=== PATIENT | female | born 1970 | race Caucasian/White ===

== ENCOUNTER 2020-10-28 22:19 | Inpatient (IN) | payer MEDICAID, OTHER ==
[~2020-10-28] VITALS: Ht 172.7 cm; Wt 108.6 kg
[~2020-10-28 22:19] MED LIST: HYDR-3682 PO; QUET50TA PO; SERT50TA PO
[2020-10-29 00:44] LABS: Basophils # (auto) 0 10 ^3/uL (0-0.2); Eosinophils # (auto) 0.2 10 ^3/uL (0-0.8); Hemoglobin 12.4 g/dL (12.2-16.2); Lymphocytes # (auto) 1.3 10 ^3/uL (0.4-5.4); Monocytes # (auto) 0.2 10 ^3/uL (0-1.3)
[2020-10-29 00:46] LABS: Basophils % (auto) 1.3 % (0.0-2.0); Eosinophils % (auto) 5.4 % (0.0-7.0); Hematocrit 36.3 % (36.0-46.0); Mean Corpuscular Hemoglobin 35.1 pg (28.0-32.0); Mean Corpuscular Hgb Conc. 34.3 g/dL (32.0-36.0); Mean Corpuscular Volume 102.2 fL (80.0-100.0); Neutrophils # (auto) 1.3 10 ^3/uL (1.6-8.6); Neutrophils % (auto) 42.3 % (37.0-80.0); Platelet Count (auto) 66 10^3/uL (140-450); Red Blood Cells 3.55 10^6/uL (4.0-5.20); Red Cell Distribution Width 18.1 % (11.8-14.3)
[2020-10-29 00:59] LABS: INR 1.6 (0.9-1.15); Partial Thromboplastin Time 30.8 sec (23.0-31.2)
[2020-10-29] MEDS ORDERED: MORPHINE SULFATE 10 MG/ML INJ 1ML SDV IV ONE (01:00)
[2020-10-29] MEDS ORDERED: ONDANSETRON HCL 4 MG/2 ML VIAL IV ONE (01:00)
[2020-10-29] MEDS ORDERED: MORPHINE SULF INJ 2 MG/ML SYRINGE 1ML ONE (01:18)
[2020-10-29] MEDS ORDERED: diphenhdrAMINE HCL 50 MG/1 ML VL IV ONE (01:30)
[2020-10-29 02:42] LABS: Albumin 2.4 g/dL (3.4-5.0); BUN/Creatinine Ratio 6.8; Potassium 3.6 mmol/L (3.5-5.1)
[2020-10-29 02:50] LABS: Total Protein 4.8 g/dL (6.4-8.2)
[2020-10-29] MEDS ORDERED: ONDANSETRON HCL 4 MG/2 ML VIAL IV PRN (13:45)
[2020-10-29] MEDS ORDERED: NITROGLYCERIN 0.4 MG SL TAB SL PRN (13:45)
[2020-10-29] MEDS ORDERED: SODIUM CHLORIDE 0.9% 500 ML IV ONE (13:45)
[2020-10-29] MEDS ORDERED: hydrALAZINE HCL 20 MG/ML VL IV PRN (13:45)
[2020-10-29] MEDS ORDERED: MORPHINE SULF INJ 2 MG/ML SYRINGE 1ML IV PRN (13:45)
[2020-10-29] MEDS ORDERED: LORazepam 2MG/ML-1ML VIAL IV PRN (13:45)
[2020-10-29] MEDS ORDERED: IOHEXOL 300 MG/ML 100ML BOTTLE IJ ONE (14:00)
[2020-10-29] MEDS ORDERED: OCTREOTIDE ACETATE 100 MCG in SODIUM CHL 0.9% 50 ML IV ONE (14:30)
[2020-10-29] MEDS ORDERED: levoFLOXacin 500MG 100 ML IV ONE (14:45)
[2020-10-29] MEDS ORDERED: cefTRIAXone 1GM/50ML D5W 50 ML IV SCH (14:45)
[2020-10-29 15:31] LABS: Urine Bacteria NONE SEEN /hpf (None Seen); Urine Blood TRACE /uL (Negative); Urine Mucus FEW (None Seen); Urine Specific Gravity 1.021 (1.001-1.035); Urine WBC 1 /hpf (0 - 5)
[2020-10-29] MEDS: MORPHINE SULF INJ 2 MG/ML SYRINGE 1ML IV PRN (17:16)
[2020-10-29 17:33] VITALS: BP 134/68
[2020-10-29] MEDS ORDERED: RIFA550T PO (17:53)
[2020-10-29] MEDS ORDERED: LACT10SO3 PO (17:53)
[2020-10-29] MEDS ORDERED: PROP80CA40 PO (17:53)
[2020-10-29] MEDS ORDERED: IRON150T2 PO (17:53)
[2020-10-29] MEDS ORDERED: MULTCAP45 PO (17:53)
[2020-10-29] MEDS ORDERED: [UNRECOGNIZED DRUG - CODE] PO (17:53)
[2020-10-29] MEDS ORDERED: FOLI1TAB6 PO (17:53)
[2020-10-29] MEDS ORDERED: PANT40TA2 PO (17:53)
[2020-10-29] MEDS ORDERED: POTA10TA51 PO (17:53)
[2020-10-29] MEDS ORDERED: MELA3TAB27 PO (17:53)
[2020-10-29] MEDS ORDERED: ASCO500T11 PO (17:53)
[2020-10-29] MEDS ORDERED: SPIR25TA8 PO (17:53)
[2020-10-29] MEDS ORDERED: THIA100T5 PO (17:53)
[2020-10-29] MEDS ORDERED: CHOL20007 PO (17:53)
[2020-10-29] MEDS: OCTREOTIDE ACETATE 500 MCG in SODIUM CHL 0.9% 99 ML IV SCH (18:35)
[2020-10-29 22:00] VITALS: BP 131/64
[2020-10-29] MEDS: PANTOPRAZOLE 40 MG/10 ML VIAL INJ IV SCH (22:02)
[2020-10-29 22:53] VITALS: BP 111/57
[2020-10-29 23:11] VITALS: BP 112/56
[2020-10-30] VITALS (9 sets, daily range): BP systolic 99–138; BP diastolic 45–71
[2020-10-30] MEDS: OCTREOTIDE ACETATE 500 MCG in SODIUM CHL 0.9% 99 ML IV SCH ×3 (01:30→21:34)
[2020-10-30] MEDS: MORPHINE SULF INJ 2 MG/ML SYRINGE 1ML IV PRN (08:37)
[2020-10-30] MEDS: IRON PO SCH (10:00)
[2020-10-30] MEDS: PROPRANOLOL HCL 40 MG PO SCH (10:00)
[2020-10-30] MEDS: FOLIC ACID PO SCH (10:00)
[2020-10-30] MEDS: CHOLECALCIFEROL (VITD3) 2,000 UNIT CAP/TAB PO SCH (10:06)
[2020-10-30] MEDS: PANTOPRAZOLE 40 MG/10 ML VIAL INJ IV SCH ×2 (10:06→21:36)
[2020-10-30] MEDS: ASCORBIC ACID 500 MG TAB PO SCH (10:06)
[2020-10-30] MEDS: FOLIC ACID 1 MG TAB PO SCH (10:06)
[2020-10-30] MEDS: THIAMINE HCL 100 MG TAB PO SCH (10:12)
[2020-10-30] MEDS: MULTIPLE VITAMIN TAB PO SCH (10:13)
[2020-10-30] MEDS: SPIRONOLACTONE 25 MG TAB PO SCH (10:13)
[2020-10-30 10:21] LABS: Basophils # (auto) 0 10 ^3/uL (0-0.2); Eosinophils # (auto) 0.1 10 ^3/uL (0-0.8); Hemoglobin 12.1 g/dL (12.2-16.2); Lymphocytes # (auto) 0.8 10 ^3/uL (0.4-5.4); Monocytes # (auto) 0.1 10 ^3/uL (0-1.3); Red Cell Distribution Width 17.9 % (11.8-14.3)
[2020-10-30 10:26] LABS: Eosinophils % (auto) 4.1 % (0.0-7.0); Hematocrit 35.5 % (36.0-46.0); Lymphocytes % (auto) 35.1 % (10.0-50.0); Mean Corpuscular Hemoglobin 35.3 pg (28.0-32.0); Mean Corpuscular Volume 103.8 fL (80.0-100.0); Monocytes % (auto) 4.8 % (0.0-12.0); Neutrophils # (auto) 1.2 10 ^3/uL (1.6-8.6); Nucleated Red Blood Cells % 0.3 %; Platelet Count (auto) 63 10^3/uL (140-450); Red Blood Cells 3.43 10^6/uL (4.0-5.20); White Blood Cell 2.2 10^3/uL (4.4-10.8)
[2020-10-30 10:39] LABS: Potassium 4.3 mmol/L (3.5-5.1)
[2020-10-30 10:50] LABS: Albumin 2.5 g/dL (3.4-5.0); Bilirubin, Total 5.7 mg/dL (0.2-1.0); Calcium 7.9 mg/dL (8.5-10.1); Total Protein 5.1 g/dL (6.4-8.2)
[2020-10-30] MEDS: POTASSIUM CHL 20 Meq TABLET PO SCH (11:18)
[2020-10-30] MEDS: HYDROmorphone HCL 2 MG/ML VL IV PRN ×2 (11:19→20:32)
[2020-10-30] MEDS: LACTULOSE 20Gm/30ML SOLN PO SCH ×2 (13:57→21:35)
[2020-10-30] MEDS: RIFAXIMIN 200 MG PO SCH ×2 (14:00→21:47)
[2020-10-30] MEDS: MELATONIN PO SCH (18:00)
[2020-10-31] MEDS: HYDROmorphone HCL 2 MG/ML VL IV PRN ×3 (02:38→19:56)
[2020-10-31 05:00] VITALS: BP 119/47
[2020-10-31] MEDS: RIFAXIMIN 200 MG PO SCH ×3 (06:00→22:00)
[2020-10-31 06:22] LABS: Hematocrit 30.8 % (36.0-46.0); Mean Corpuscular Hemoglobin 36.6 pg (28.0-32.0); Mean Corpuscular Hgb Conc. 35.5 g/dL (32.0-36.0); Mean Corpuscular Volume 103.1 fL (80.0-100.0); Platelet Count (auto) 52 10^3/uL (140-450); Red Blood Cells 2.99 10^6/uL (4.0-5.20); Red Cell Distribution Width 17.1 % (11.8-14.3)
[2020-10-31 06:36] LABS: Basophils % (manual) 0 (0.0-2.0); Blast Cells 0; Calcium 7.8 mg/dL (8.5-10.1); Metamyelocytes % 0; Myelocytes % 0; Potassium 4.4 mmol/L (3.5-5.1); Promyelocytes % 0; Reactive Lymphocytes 0; White Blood Cell 1.9 10^3/uL (4.4-10.8)
[2020-10-31] MEDS: OCTREOTIDE ACETATE 500 MCG in SODIUM CHL 0.9% 99 ML IV SCH ×2 (06:46→16:44)
[2020-10-31] MEDS: LACTULOSE 20Gm/30ML SOLN PO SCH ×3 (06:46→21:22)
[2020-10-31 07:13] LABS: Band Neutrophils % (manual) 3; Eosinophils % (manual) 4 (0-7); Lymphocytes % (manual) 57 (10.0-50.0); Monocytes % (manual) 12 (0-12)
[2020-10-31 08:35] VITALS: BP 120/68
[2020-10-31] MEDS: FOLIC ACID PO SCH (10:00)
[2020-10-31] MEDS: IRON PO SCH (10:00)
[2020-10-31] MEDS: PROPRANOLOL HCL 40 MG PO SCH (10:00)
[2020-10-31] MEDS: FOLIC ACID 1 MG TAB PO SCH (10:17)
[2020-10-31] MEDS: THIAMINE HCL 100 MG TAB PO SCH (10:17)
[2020-10-31] MEDS: SPIRONOLACTONE 25 MG TAB PO SCH (10:17)
[2020-10-31] MEDS: PANTOPRAZOLE 40 MG/10 ML VIAL INJ IV SCH ×2 (10:17→21:22)
[2020-10-31] MEDS: POTASSIUM CHL 20 Meq TABLET PO SCH (10:17)
[2020-10-31] MEDS: diphenhdrAMINE HCL 50 MG/1 ML VL IV PRN ×2 (10:18→21:30)
[2020-10-31] MEDS: CHOLECALCIFEROL (VITD3) 2,000 UNIT CAP/TAB PO SCH (10:18)
[2020-10-31] MEDS: MULTIPLE VITAMIN TAB PO SCH (10:18)
[2020-10-31] MEDS: ASCORBIC ACID 500 MG TAB PO SCH (10:18)
[2020-10-31 13:00] VITALS: BP 132/60
[2020-10-31 16:56] VITALS: BP 135/62
[2020-10-31 17:35] VITALS: BP 120/71
[2020-10-31] MEDS: MELATONIN PO SCH (17:51)
[2020-10-31 22:00] VITALS: BP 115/66
[2020-11-01] VITALS (13 sets, daily range): BP systolic 110–136; BP diastolic 57–75
[2020-11-01] MEDS: OCTREOTIDE ACETATE 500 MCG in SODIUM CHL 0.9% 99 ML IV SCH ×3 (02:30→21:21)
[2020-11-01] MEDS: LACTULOSE 20Gm/30ML SOLN PO SCH ×3 (06:00→21:21)
[2020-11-01] MEDS: RIFAXIMIN 200 MG PO SCH (06:00)
[2020-11-01 06:38] LABS: Hemoglobin 10.8 g/dL (12.2-16.2)
[2020-11-01 06:41] LABS: Hematocrit 30.5 % (36.0-46.0); Mean Corpuscular Hgb Conc. 35.4 g/dL (32.0-36.0); Mean Corpuscular Volume 101.5 fL (80.0-100.0); Platelet Count (auto) 49 10^3/uL (140-450); Red Blood Cells 3.01 10^6/uL (4.0-5.20); Red Cell Distribution Width 17.4 % (11.8-14.3)
[2020-11-01 06:43] LABS: White Blood Cell 1.8 10^3/uL (4.4-10.8)
[2020-11-01 06:45] LABS: Basophils % (manual) 0 (0.0-2.0); Blast Cells 0; INR 1.72 (0.9-1.15); Metamyelocytes % 0; Myelocytes % 0; Promyelocytes % 0; Reactive Lymphocytes 0
[2020-11-01 06:50] LABS: Calcium 7.7 mg/dL (8.5-10.1); Potassium 3.9 mmol/L (3.5-5.1)
[2020-11-01 06:53] LABS: BUN/Creatinine Ratio 7.1
[2020-11-01 07:55] LABS: Band Neutrophils % (manual) 1; Eosinophils % (manual) 6 (0-7); Lymphocytes % (manual) 35 (10.0-50.0); Monocytes % (manual) 10 (0-12)
[2020-11-01] MEDS: FOLIC ACID 1 MG TAB PO SCH (09:59)
[2020-11-01] MEDS: IRON PO SCH ×2 (09:59→10:00)
[2020-11-01] MEDS: PANTOPRAZOLE 40 MG/10 ML VIAL INJ IV SCH ×2 (09:59→21:20)
[2020-11-01] MEDS: FOLIC ACID PO SCH ×2 (09:59→10:00)
[2020-11-01] MEDS: PROPRANOLOL HCL 40 MG PO SCH ×2 (09:59→10:00)
[2020-11-01] MEDS: SPIRONOLACTONE 25 MG TAB PO SCH (10:00)
[2020-11-01] MEDS: POTASSIUM CHL 20 Meq TABLET PO SCH (10:00)
[2020-11-01] MEDS: THIAMINE HCL 100 MG TAB PO SCH (10:00)
[2020-11-01] MEDS: CHOLECALCIFEROL (VITD3) 2,000 UNIT CAP/TAB PO SCH (10:01)
[2020-11-01] MEDS: MULTIPLE VITAMIN TAB PO SCH (10:01)
[2020-11-01] MEDS: ASCORBIC ACID 500 MG TAB PO SCH (10:01)
[2020-11-01] MEDS ORDERED: HYDROmorphone HCL 2 MG/ML VL IV PRN (10:30)
[2020-11-01] MEDS: HYDROmorphone HCL 2 MG/ML VL IV PRN ×2 (11:17→23:39)
[2020-11-01] MEDS ORDERED: PHYTONADIONE (VIT K)10 MG/ML 1ML VIAL IV ONE (13:30)
[2020-11-01] MEDS ORDERED: rifAXIMin 550 MG TAB PO SCH (14:00)
[2020-11-01] MEDS ORDERED: phytonadione 10 MG in SODIUM CHL 0.9% 50 ML IV ONE (14:15)
[2020-11-01] MEDS: rifAXIMin 550 MG TAB PO SCH ×2 (16:23→21:21)
[2020-11-01] MEDS ORDERED: MELATONIN PO SCH (16:30)
[2020-11-01] MEDS: MELATONIN PO SCH (18:00)
[2020-11-02] VITALS (13 sets, daily range): BP systolic 101–152; BP diastolic 58–78
[2020-11-02 05:47] LABS: Hemoglobin 10.8 g/dL (12.2-16.2); Red Cell Distribution Width 17.1 % (11.8-14.3)
[2020-11-02 05:50] LABS: Hematocrit 30.1 % (36.0-46.0); Mean Corpuscular Hemoglobin 36.6 pg (28.0-32.0); Mean Corpuscular Hgb Conc. 35.8 g/dL (32.0-36.0); Mean Corpuscular Volume 102.1 fL (80.0-100.0); Platelet Count (auto) 46 10^3/uL (140-450); Red Blood Cells 2.94 10^6/uL (4.0-5.20)
[2020-11-02 05:59] LABS: White Blood Cell 1.7 10^3/uL (4.4-10.8)
[2020-11-02 06:01] LABS: Basophils % (manual) 0 (0.0-2.0); Blast Cells 0; Metamyelocytes % 0; Myelocytes % 0; Promyelocytes % 0
[2020-11-02 06:06] LABS: INR 1.65 (0.9-1.15)
[2020-11-02 06:12] LABS: BUN/Creatinine Ratio 3.9; Calcium 8.5 mg/dL (8.5-10.1); Potassium 3.8 mmol/L (3.5-5.1)
[2020-11-02] MEDS: LACTULOSE 20Gm/30ML SOLN PO SCH ×3 (06:17→21:26)
[2020-11-02 07:49] LABS: Band Neutrophils % (manual) 3; Eosinophils % (manual) 5 (0-7); Lymphocytes % (manual) 40 (10.0-50.0); Monocytes % (manual) 4 (0-12); Reactive Lymphocytes 4
[2020-11-02] MEDS ORDERED: SODIUM CHLORIDE LOCK 10 ML ONE (08:34)
[2020-11-02] MEDS ORDERED: PROPOFOL 10 MG/ML 20 ML IV ONE (08:34)
[2020-11-02] MEDS ORDERED: MIDAZOLAM HCL 1MG/1ML-2 ML VIAL ONE (08:34)
[2020-11-02] MEDS ORDERED: LIDOCAINE 2% (LOCAL ANESTH.) PF 5ml SDV ONE (08:34)
[2020-11-02] MEDS ORDERED: fentaNYL CITRATE 100 MCG/2 ML VL ONE (08:34)
[2020-11-02] MEDS ORDERED: ONDANSETRON HCL 4 MG/2 ML VIAL ONE (08:34)
[2020-11-02] MEDS: PROPRANOLOL HCL 40 MG PO SCH (10:00)
[2020-11-02] MEDS: IRON PO SCH (10:00)
[2020-11-02] MEDS: FOLIC ACID PO SCH (10:00)
[2020-11-02] MEDS: OCTREOTIDE ACETATE 500 MCG in SODIUM CHL 0.9% 99 ML IV SCH ×2 (10:54→18:24)
[2020-11-02] MEDS: THIAMINE HCL 100 MG TAB PO SCH (10:55)
[2020-11-02] MEDS: FOLIC ACID 1 MG TAB PO SCH (10:55)
[2020-11-02] MEDS: SPIRONOLACTONE 25 MG TAB PO SCH (10:55)
[2020-11-02] MEDS: PANTOPRAZOLE 40 MG/10 ML VIAL INJ IV SCH ×2 (10:55→21:26)
[2020-11-02] MEDS: CHOLECALCIFEROL (VITD3) 2,000 UNIT CAP/TAB PO SCH (10:56)
[2020-11-02] MEDS: ASCORBIC ACID 500 MG TAB PO SCH (10:56)
[2020-11-02] MEDS: rifAXIMin 550 MG TAB PO SCH ×2 (10:56→21:26)
[2020-11-02] MEDS: MULTIPLE VITAMIN TAB PO SCH (10:56)
[2020-11-02] MEDS: POTASSIUM CHL 20 Meq TABLET PO SCH (10:56)
[2020-11-02] MEDS ORDERED: DOCUSATE SOD 100 MG CAP PO ONE (13:45)
[2020-11-02] MEDS ORDERED: SENNA 8.6 MG TAB PO ONE (13:45)
[2020-11-02] MEDS: HYDROmorphone HCL 2 MG/ML VL IV PRN (16:46)
[2020-11-02] MEDS: MELATONIN PO SCH (17:02)
[2020-11-03] MEDS: OCTREOTIDE ACETATE 500 MCG in SODIUM CHL 0.9% 99 ML IV SCH (04:30)
[2020-11-03 05:00] VITALS: BP 129/45
[2020-11-03] MEDS: LACTULOSE 20Gm/30ML SOLN PO SCH ×2 (06:21→13:54)
[2020-11-03] MEDS: HYDROmorphone HCL 2 MG/ML VL IV PRN (06:37)
[2020-11-03 09:00] VITALS: BP 124/55
[2020-11-03] MEDS: PANTOPRAZOLE 40 MG/10 ML VIAL INJ IV SCH (09:58)
[2020-11-03] MEDS: PROPRANOLOL HCL 40 MG PO SCH (09:59)
[2020-11-03] MEDS: FOLIC ACID PO SCH (09:59)
[2020-11-03] MEDS: IRON PO SCH (09:59)
[2020-11-03] MEDS: THIAMINE HCL 100 MG TAB PO SCH (09:59)
[2020-11-03] MEDS: FOLIC ACID 1 MG TAB PO SCH (09:59)
[2020-11-03] MEDS ORDERED: DOCUSATE SOD 100 MG CAP PO SCH (10:00)
[2020-11-03] MEDS: SPIRONOLACTONE 25 MG TAB PO SCH (10:00)
[2020-11-03] MEDS ORDERED: SENNA 8.6 MG TAB PO SCH (10:00)
[2020-11-03] MEDS: MULTIPLE VITAMIN TAB PO SCH (10:01)
[2020-11-03] MEDS: POTASSIUM CHL 20 Meq TABLET PO SCH (10:01)
[2020-11-03] MEDS: CHOLECALCIFEROL (VITD3) 2,000 UNIT CAP/TAB PO SCH (10:01)
[2020-11-03] MEDS: rifAXIMin 550 MG TAB PO SCH (10:01)
[2020-11-03] MEDS: ASCORBIC ACID 500 MG TAB PO SCH (10:01)
[2020-11-03 13:00] VITALS: BP 123/58
== END 2020-11-03 14:04 | disposition home or self-care (01) | DRG 280 ==
LOC: ER 22:19 → EDBD 22:19 → TELE 10-29 13:37 → TELE-CENTR 10-29 16:09
PROVIDERS: ADMIT Family Medicine; ATTEND Internal Medicine Pulmonary Disease
PROC: 30233R1 Transfusion of Nonautologous Platelets into Peripheral Vein, Percutaneous Approach (ICD-10-PCS; 2020-10-29)
PROC: 30233L1 Transfusion of Nonautologous Fresh Plasma into Peripheral Vein, Percutaneous Approach (ICD-10-PCS; principal; 2020-10-30)
PROC: 0DJ08ZZ Inspection of Upper Intestinal Tract, Via Natural or Artificial Opening Endoscopic (ICD-10-PCS; 2020-11-02)
DX: K70.30 Alcoholic cirrhosis of liver without ascites (principal); D61.818 Other pancytopenia; D68.9 Coagulation defect, unspecified; K72.90 Hepatic failure, unspecified without coma; K92.2 Gastrointestinal hemorrhage, unspecified; K76.6 Portal hypertension; I85.10 Secondary esophageal varices without bleeding; R07.89 Other chest pain; R73.9 Hyperglycemia, unspecified; F10.10 Alcohol abuse, uncomplicated; F12.90 Cannabis use, unspecified, uncomplicated; F17.210 Nicotine dependence, cigarettes, uncomplicated; F31.9 Bipolar disorder, unspecified; K59.00 Constipation, unspecified; Z20.822 Contact with and (suspected) exposure to COVID-19; N83.209 Unspecified ovarian cyst, unspecified side; Z82.49 Family history of ischemic heart disease and other diseases of the circulatory system; Z83.3 Family history of diabetes mellitus; Z90.49 Acquired absence of other specified parts of digestive tract; Z90.710 Acquired absence of both cervix and uterus; Z88.0 Allergy status to penicillin; Z91.040 Latex allergy status; Z88.8 Allergy status to other drugs, medicaments and biological substances; Z80.42 Family history of malignant neoplasm of prostate; D73.1 Hypersplenism
CPT/HCPCS: 36415; 71045; 74178; 76830; 76856; 80048; 80053; 81001; 82140; 82150; 83690; 83735; 83880; 84443; 84484; 84702; 85007; 85025; 85027; 85610; 85730; 86304; 86850; 86900; 86901; 87426; 93005; 93306; 96361; 96365; 96375; C9113; G0378; J1956; J2001; J2250; J2405; J2704; J3430

== ENCOUNTER 2020-11-09 16:41 | Emergency (ER) | payer MEDICAID ==
[~2020-11-09] VITALS: Ht 172.7 cm; Wt 106.6 kg
[~2020-11-09 16:41] MED LIST changes: +ASCO500T11 PO; +CHOL20007 PO; +FOLI1TAB6 PO; -HYDR-3682 PO; +IRON150T2 PO; +LACT10SO3 PO; +MELA3TAB27 PO; +MULTCAP45 PO; +PANT40TA2 PO; +POTA10TA51 PO; +PROP80CA40 PO; -QUET50TA PO; +RIFA550T PO; -SERT50TA PO; +SPIR25TA8 PO; +THIA100T5 PO; +[UNRECOGNIZED DRUG - CODE] PO
[2020-11-09 16:47] VITALS: BP 143/65
== END 2020-11-09 21:07 | disposition left against medical advice (07) ==
LOC: ER 16:41
DX: I10 Essential (primary) hypertension (principal); F17.210 Nicotine dependence, cigarettes, uncomplicated; Z90.49 Acquired absence of other specified parts of digestive tract; Z90.710 Acquired absence of both cervix and uterus; Z79.899 Other long term (current) drug therapy; Z88.0 Allergy status to penicillin; Z91.040 Latex allergy status; Z88.8 Allergy status to other drugs, medicaments and biological substances

== ENCOUNTER 2023-01-12 22:46 | Inpatient (IN) | payer MEDICAID ==
[~2023-01-12] VITALS: Ht 172.7 cm; Wt 113.0 kg
[~2023-01-12 22:46] MED LIST changes: +FOLI-119 PO; -FOLI1TAB6 PO
[2023-01-12 23:10] VITALS: PULSE 75; RESP 18; O2SAT 95
[2023-01-12 23:42] LABS: Basophils # (auto) 0 10 ^3/uL (0-0.2); Basophils % (auto) 1.4 % (0.0-2.0); Eosinophils # (auto) 0.2 10 ^3/uL (0-0.8); Eosinophils % (auto) 7.6 % (0.0-7.0); Hematocrit 36.5 % (36.0-46.0); Hemoglobin 12.3 g/dL (12.2-16.2); Lymphocytes # (auto) 1.3 10 ^3/uL (0.4-5.4); Lymphocytes % (auto) 42.9 % (10.0-50.0); Mean Corpuscular Hemoglobin 33.5 pg (28.0-32.0); Mean Corpuscular Hgb Conc. 33.7 g/dL (32.0-36.0); Mean Corpuscular Volume 99.4 fL (80.0-100.0); Monocytes # (auto) 0.2 10 ^3/uL (0-1.3); Monocytes % (auto) 7.2 % (0.0-12.0); Neutrophils # (auto) 1.2 10 ^3/uL (1.6-8.6); Neutrophils % (auto) 40.9 % (37.0-80.0); Nucleated Red Blood Cells % 0.2 %; Red Blood Cells 3.67 10^6/uL (4.0-5.20); Red Cell Distribution Width 16.6 % (11.8-14.3); White Blood Cell 3.1 10^3/uL (4.4-10.8)
[2023-01-12 23:57] LABS: Acetaminophen < 2.0 ug/mL (10-30)
[2023-01-12 23:59] LABS: Albumin 2.9 g/dL (3.4-5.0); Anion Gap 6 (5-15); Blood Urea Nitrogen 10 mg/dL (7-18); Calcium 8.5 mg/dL (8.5-10.1); Carbon Dioxide 22 mmol/L (21-32); Chloride 118 mmol/L (98-107); Glucose 116 mg/dL (74-106); Potassium 3.8 mmol/L (3.5-5.1); Sodium 146 mmol/L (136-145)
[2023-01-13] MEDS ORDERED: KETOROLAC TROMETH 30 MG/ML 1ML VIAL IV ONE
[2023-01-13 00:01] LABS: BUN/Creatinine Ratio 14.3 (10.0-20.0); GFR African American 112 mL/min; GFR Non-African American 93 mL/min; Salicylate < 1.7 mg/dL (2.8-20.0)
[2023-01-13 00:09] LABS: Blood Alcohol < 3.0 mg/dL (<10)
[2023-01-13 00:13] LABS: Alanine Aminotransferase 24 U/L (13-56); Alkaline Phosphatase 122 U/L (45-117); Aspartate Aminotransferase 47 U/L (15-37); Bilirubin, Total 4.3 mg/dL (0.2-1.0); Total Protein 5.4 g/dL (6.4-8.2)
[2023-01-13 00:33] LABS: Urine Bacteria FEW /hpf (None Seen); Urine Blood 1+ /uL (Negative); Urine Clarity Clear (Clear); Urine Color Colorless (Yellow); Urine Protein, UAD Negative (Negative); Urine Specific Gravity 1.003 (1.001-1.035); Urine WBC <1 /hpf (0 - 5)
[2023-01-13 01:07] LABS: Alcohol, Urine < 3.0 mg/dL (0-10); Amphetamine Screen, Urine NEGATIVE (NEGATIVE); Barbiturate Scree,Urine NEGATIVE (NEGATIVE); Cannabinoid Screen, Urine POSITIVE (NEGATIVE)
[2023-01-13 01:19] LABS: Benzodiazephine Screen, Urine NEGATIVE (NEGATIVE); Cocaine Screen, Urine NEGATIVE (NEGATIVE); Opiate Scree,Urine NEGATIVE (NEGATIVE); Phencyclidine Screen, Urine NEGATIVE (NEGATIVE)
[2023-01-13] MEDS ORDERED: ACETAMINOPHEN 500 MG TAB PO ONE (04:45)
[2023-01-13] MEDS ORDERED: diphenhdrAMINE HCL 50 MG/1 ML VL IV ONE (05:00)
[2023-01-13] MEDS ORDERED: METOCLOPRAMIDE HCL 5MG/ml INJ 2ml VIAL IV ONE ×2 (05:00)
[2023-01-13] MEDS ORDERED: HYDROmorphone HCL 2 MG/ML VL/or syr IV ONE (05:00)
[2023-01-13] MEDS ORDERED: NITROGLYCERIN 0.4 MG SL TAB SL PRN (05:15)
[2023-01-13] MEDS ORDERED: MORPHINE SULFATE INJ 2 MG/ml SYRG IV PRN (05:15)
[2023-01-13] MEDS ORDERED: ALBUMIN 25% 100 ML IV ONE (05:15)
[2023-01-13] MEDS ORDERED: DOCUSATE SOD 100 MG CAP PO PRN (05:15)
[2023-01-13] MEDS ORDERED: IBUPROFEN 400 MG TAB PO PRN (05:15)
[2023-01-13] MEDS: SODIUM CHLOR 0.9% PF (SALINE LOCK) 10ML VIAL/SYR IV SCH ×3 (06:46→22:15)
[2023-01-13 06:56] LABS: Basophils # (auto) 0.1 10 ^3/uL (0-0.2); Basophils % (auto) 1.8 % (0.0-2.0); Eosinophils # (auto) 0.2 10 ^3/uL (0-0.8); Eosinophils % (auto) 6.7 % (0.0-7.0); Hematocrit 33.8 % (36.0-46.0); Hemoglobin 11.6 g/dL (12.2-16.2); Lymphocytes # (auto) 1.4 10 ^3/uL (0.4-5.4); Mean Corpuscular Hgb Conc. 34.3 g/dL (32.0-36.0); Mean Corpuscular Volume 99.2 fL (80.0-100.0); Monocytes # (auto) 0.2 10 ^3/uL (0-1.3); Monocytes % (auto) 6.7 % (0.0-12.0); Neutrophils # (auto) 1.1 10 ^3/uL (1.6-8.6); Neutrophils % (auto) 37.8 % (37.0-80.0); Nucleated Red Blood Cells % 0.2 %; Red Blood Cells 3.41 10^6/uL (4.0-5.20); Red Cell Distribution Width 16.8 % (11.8-14.3)
[2023-01-13 07:58] LABS: Potassium 3.8 mmol/L (3.5-5.1)
[2023-01-13 08:00] VITALS: PULSE 61; RESP 17; O2SAT 96
[2023-01-13 08:07] LABS: Albumin 2.5 g/dL (3.4-5.0); BUN/Creatinine Ratio 12.7 (10.0-20.0); Bilirubin, Total 4.1 mg/dL (0.2-1.0); Calcium 8.4 mg/dL (8.5-10.1); Total Protein 4.9 g/dL (6.4-8.2)
[2023-01-13] MEDS: SPIRONOLACTONE 25 MG TAB PO SCH (10:00)
[2023-01-13] MEDS ORDERED: FAMOTIDINE (10MG/ML) 2ML VL IV SCH (10:00)
[2023-01-13] MEDS: PANTOPRAZOLE 40 MG TAB PO SCH (10:45)
[2023-01-13] MEDS: LACTULOSE 20Gm/30ML SOLN PO SCH ×3 (10:45→22:15)
[2023-01-13 20:00] VITALS: PULSE 59; RESP 17; O2SAT 98
[2023-01-13] MEDS: ONDANSETRON HCL 4 MG/2 ML VIAL IV PRN (20:59)
[2023-01-13] MEDS: HYDROmorphone HCL 2 MG/ML VL/or syr IV PRN (21:00)
[2023-01-13] MEDS: diphenhdrAMINE HCL 50 MG/1 ML VL IV PRN (21:00)
[2023-01-13] MEDS: rifAXIMin 550 MG TAB PO SCH (22:15)
[2023-01-14] MEDS: diphenhdrAMINE HCL 50 MG/1 ML VL IV PRN ×3 (02:21→23:23)
[2023-01-14] MEDS: ONDANSETRON HCL 4 MG/2 ML VIAL IV PRN (02:39)
[2023-01-14] MEDS: HYDROmorphone HCL 2 MG/ML VL/or syr IV PRN ×2 (02:40→15:42)
[2023-01-14] MEDS: LACTULOSE 20Gm/30ML SOLN PO SCH ×4 (06:09→21:15)
[2023-01-14] MEDS: SODIUM CHLOR 0.9% PF (SALINE LOCK) 10ML VIAL/SYR IV SCH ×3 (06:09→21:13)
[2023-01-14] MEDS: rifAXIMin 550 MG TAB PO SCH ×2 (06:09→14:23)
[2023-01-14 06:16] LABS: Calcium 8.1 mg/dL (8.5-10.1); Potassium 4.3 mmol/L (3.5-5.1)
[2023-01-14 06:21] LABS: Albumin 2.8 g/dL (3.4-5.0); BUN/Creatinine Ratio 9.9 (10.0-20.0); Bilirubin, Total 3.7 mg/dL (0.2-1.0); Total Protein 5.2 g/dL (6.4-8.2)
[2023-01-14 07:30] VITALS: PULSE 54; RESP 11; O2SAT 99
[2023-01-14 09:12] LABS: Basophils # (auto) 0.1 10 ^3/uL (0-0.2); Eosinophils # (auto) 0.3 10 ^3/uL (0-0.8); Eosinophils % (auto) 7.7 % (0.0-7.0); Hematocrit 35.2 % (36.0-46.0); Lymphocytes # (auto) 1.8 10 ^3/uL (0.4-5.4); Lymphocytes % (auto) 47.5 % (10.0-50.0); Mean Corpuscular Hemoglobin 33.9 pg (28.0-32.0); Mean Corpuscular Hgb Conc. 33.9 g/dL (32.0-36.0); Monocytes # (auto) 0.3 10 ^3/uL (0-1.3); Monocytes % (auto) 8.3 % (0.0-12.0); Neutrophils # (auto) 1.3 10 ^3/uL (1.6-8.6); Neutrophils % (auto) 34.5 % (37.0-80.0); Nucleated Red Blood Cells % 0.3 %; Red Blood Cells 3.52 10^6/uL (4.0-5.20); Red Cell Distribution Width 16.9 % (11.8-14.3); White Blood Cell 3.8 10^3/uL (4.4-10.8)
[2023-01-14] MEDS: PANTOPRAZOLE 40 MG TAB PO SCH (09:49)
[2023-01-14] MEDS: SPIRONOLACTONE 25 MG TAB PO SCH (09:49)
[2023-01-14] MEDS: XIFAXAN 550 MG PO SCH (21:26)
[2023-01-15] MEDS: ONDANSETRON HCL 4 MG/2 ML VIAL IV PRN (01:11)
[2023-01-15] MEDS: HYDROmorphone HCL 2 MG/ML VL/or syr IV PRN ×2 (01:11→09:43)
[2023-01-15] MEDS: SODIUM CHLOR 0.9% PF (SALINE LOCK) 10ML VIAL/SYR IV SCH ×2 (06:01→14:17)
[2023-01-15] MEDS: LACTULOSE 20Gm/30ML SOLN PO SCH ×4 (06:02→19:26)
[2023-01-15] MEDS: XIFAXAN 550 MG PO SCH (06:40)
[2023-01-15 08:15] VITALS: PULSE 60; RESP 14; O2SAT 99
[2023-01-15] MEDS: SPIRONOLACTONE 25 MG TAB PO SCH (09:42)
[2023-01-15] MEDS: PANTOPRAZOLE 40 MG TAB PO SCH (09:42)
[2023-01-15] MEDS ORDERED: FUROSEMIDE 40 MG/4 ML VIAL IV ONE (14:00)
[2023-01-15] MEDS ORDERED: IBUPROFEN 400 MG TAB PO PRN (14:00)
[2023-01-15 15:34] LABS: INR 1.6 (0.9-1.15); Partial Thromboplastin Time 33.3 SEC (24.5-34.5); Prothrombin Time 16.3 sec (9.3-11.8)
[2023-01-15] MEDS ORDERED: HYDROcodone-ACET 5/325MG TAB PO PRN (19:00)
[2023-01-15 19:30] VITALS: PULSE 67; RESP 67; O2SAT 98
[2023-01-15 20:00] VITALS: BP 122/47; PULSE 64; RESP 19; TEMP 99; O2SAT 98
[2023-01-15] MEDS ORDERED: rifAXIMin 550 MG TAB PO SCH (22:00)
[2023-01-16 05:07] LABS: AFP Serum Tumor Marker 2.8 ng/mL (0.0-9.2)
[2023-01-16] MEDS ORDERED: FUROSEMIDE 40 MG/4 ML VIAL IV SCH (10:00)
== END 2023-01-15 21:05 | disposition left against medical advice (07) | DRG 817 ==
LOC: EDBD 22:46 → ER 22:46 → TELE 01-13 05:20
PROVIDERS: ADMIT Internal Medicine; ATTEND Student in an Organized Health Care Education/Training Program
DX: T44.7X2A Poisoning by beta-adrenoreceptor antagonists, intentional self-harm, initial encounter (principal); D61.818 Other pancytopenia; E44.1 Mild protein-calorie malnutrition; K76.82 Hepatic encephalopathy; I50.42 Chronic combined systolic (congestive) and diastolic (congestive) heart failure; I11.0 Hypertensive heart disease with heart failure; K70.30 Alcoholic cirrhosis of liver without ascites; D73.1 Hypersplenism; F31.9 Bipolar disorder, unspecified; D72.819 Decreased white blood cell count, unspecified; F17.210 Nicotine dependence, cigarettes, uncomplicated; F43.10 Post-traumatic stress disorder, unspecified; T42.8X2A Poisoning by antiparkinsonism drugs and other central muscle-tone depressants, intentional self-harm, initial encounter; E66.9 Obesity, unspecified; F41.9 Anxiety disorder, unspecified; Z53.21 Procedure and treatment not carried out due to patient leaving prior to being seen by health care provider; R73.9 Hyperglycemia, unspecified; Z68.37 Body mass index [BMI] 37.0-37.9, adult; Z88.5 Allergy status to narcotic agent; Z88.0 Allergy status to penicillin; Z90.710 Acquired absence of both cervix and uterus; Z88.8 Allergy status to other drugs, medicaments and biological substances; Z88.1 Allergy status to other antibiotic agents; Z91.040 Latex allergy status; Z90.49 Acquired absence of other specified parts of digestive tract; Z71.3 Dietary counseling and surveillance; Y92.89 Other specified places as the place of occurrence of the external cause
CPT/HCPCS: 36415; 76705; 80053; 80307; 80320; 80329; 81001; 82105; 82140; 83036; 83735; 83880; 85025; 85610; 85730; 93005; 93306; 96365; 96375; 96376; 99291; G0378; J2405; P9047